=== PATIENT | female | born 1945 | race Caucasian/White ===

== ENCOUNTER → 2016-09-03 | Outpatient (CLI) | payer MEDICARE, BC ==
[~2016-09-03] MED LIST: COLACE100 MG PO; LATANOPROST2.5 ML OPHTH; LOVENOX 4040 MG/0.4 SUB-Q; NAPROSYN500 MG PO; NORCO 5-325 TA1 EACH PO; PROBIOTIC1 EAC1 PO; PROTONIX40 MG PO; RESTASIS 0.05%1 VIAL OPHTH; TYLENOL EXTRA500 MG PO; TYLENOL PM EX-1 EACH PO; ULTRAM50 MG PO; ZOFRAN4 MG PO
== END | disposition disaster alternative care site (69) ==
LOC: GRAD 08:28
DX: R59.0 Localized enlarged lymph nodes (principal); E04.2 Nontoxic multinodular goiter; Z85.820 Personal history of malignant melanoma of skin